=== PATIENT | female | born 1995 | race Caucasian/White ===

== ENCOUNTER 2022-12-26 06:53 | Inpatient (IN) | payer OTHER, SELFPAY ==
[2022-12-26] VITALS (27 sets, daily range): BP systolic 110–131; BP diastolic 60–74; PULSE 53–87; RESP 14–16; TEMP 36.6–36.9; O2SAT 97–100; BMI 29.5
[2022-12-26] MEDS: miSOPROStoL 25 MCG/0.25 TABLET VAGINAL ×3 (07:50→14:03)
[2022-12-26 08:23] LABS: SARS PCR* Negative SARS-CoV-2 (Negative)
--- NOTE | 2022-12-26 11:51 | P.OBHP_ITS ---
OB - H&P: HPI Labor/Induction History of Present Illness Time Seen by Provider: 07:05 Date Seen: 12/26/22 Chief Complaint: The patient is a 27 year old 1 para 0 at 41 weeks gestation by LMP c/w 1st trimester US, who presents for postdates induction. Chief complaint: IOL for post dates : 1 Para: 0 Date of last menstrual period: 03/14/22 Estimated date of delivery: 12/19/22 Gestational age based on last menstrual period: 41 Indications for induction: other (postdates) Narrative: Marsiela Chaparro is a 27 year old at 42 wks here for induction due to postdates. No concerns. Feels well. No regular ctxs, no bleeding. Good FM. No headaches or vision changes. History of Present Dating criteria: based on LMP (c/w 1st trimester US) care: good care Ultrasounds: normal 1st trimester US and abnormal US findings (20wk anatomy US with echogenic cardiac focus. Cristopher wnl. Level 2 US done and likely represents calcification papillary muscle. Heart normal otherwise and no further evaluation needed.) Medical complications: none Labs Blood type: O (+) positive Rubella: immune RPR/VDLR: nonreactive GBS status: negative HBsAG: negative Review of Systems Status of ROS: Reports: 6 or more systems reviewed and unremarkable except as noted in History and below Meds Home Medications and Allergies Home Medications Medication Instructions Recorded Confirmed Type escitalopram oxalate 10 mg tablet mg 12/26/22 History ferrous sulfate 325 mg (65 mg mg 12/26/22 History iron) tablet (FeroSul) OB - H&P: Exam Physical Exam: Vital signs: Temp Pulse BP 98 F 71 121/71 12/26/22 10:53 12/26/22 10:53 12/26/22 10:53 Constitutional: Constitutional: no acute distress and cooperative Routine HEENT Exam: Head: Present atraumatic, normal inspection and normocephalic Eye: Present normal appearance ENT: Present mucous membranes moist Routine Neck Exam: Neck: Present normal inspection Routine Respiratory Exam: Respiratory: Present CTA bilaterally Routine Cardiovascular Exam: Cardiovascular: RRR Detailed Labor and Delivery Exam: Comments: per nursing on admit /-3 Fetus (Single): Heart Rate Baseline: 130 Monitor Accelerations: Present Monitor Decelerations: None Senior Living Variability: Moderate (6-25) Routine Extremities Exam: Extremities: Absent pedal edema Routine Psychiatric Exam: Present normal affect, normal thought process and cooperative OB - Problem Based A/P Additional Plan (1) Post-dates : Status: Acute Plan discussed induction at length with pt in clinic and over phone last night. She did not have any further ?'s. Cytotec PV per protocol Delivery/Labor/Induction Plan Plan: induction Induction method: per misoprostol protocol
[2022-12-26] MEDS: LACTATED RINGERS 1000 ML 1,000 ML 425 ML IV (14:55)
[2022-12-26 15:03] LABS: Basophils Percent Auto 0.2 % (0.0-3.0); Eosinophils Percent Auto 0.4 % (0.0-7.0); Hemoglobin* 11.8 gm/dL (12.0-16.0); Immature Granulocytes Pct Auto 0.3 %; Lymphocytes Percent Auto 13.9 % (20-44); Mean Corpuscular HGB Conc 34 gm/dL (32-36); Mean Corpuscular Hemoglobin 32 pg (26-34); Mean Corpuscular Volume 95 fL (80-100); Monocytes Percent Auto 6.7 % (0.0-11.0); Neutrophils Percent Auto 78.5 % (42.0-72.0); Platelet Count* 159 K/uL (140-440); RDW Coefficient of Variation % 13.3 % (11.5-15.5); Red Blood Count 3.69 m/uL (4.00-5.20); White Blood Count* 11.25 K/uL (4.50-11.00)
[2022-12-26 15:08] LABS: Slide Review Reflex No
--- NOTE | 2022-12-26 17:04 | P.OBCN_ITS ---
OB - CN: HPI Date of Consult Time Seen by Provider: 15:00 Date Seen: 12/26/22 Patient: Maritza Patient Consult date: 12/26/22 Requesting Physician: Tameka Garcia DO Primary Care Provider: Tameka Garcia DO Consult Narrative Narrative: HPI: Marisela is a 27 year old G 1 P 0 at 41 and 0/7 weeks gestation that was admitted to the [facility] on 12/26/22 for postdates induction of labor. I was called by Dr. Tameka Garcia to see the patient due to suspected breech presentation of the fetus. Dr. Garcia stated that there was a deceleration in the heart rate, the patient felt a large movement and than the nurse had difficulty finding the heart rate on the external monitor. I performed a bedside ultrasound and noted the fetus to be in the fernando breech position with the head in the maternal left upper quadrant. She is not a good candidate for an external cephalic version due to postdates gestation and normal-low amniotic fluid level on gross ultrasound exam. I recommended a primary low-transverse section for delivery due to 1% risk of si gnificant morbidity or mortality with attempted vaginal breech delivery. Anesthesia for scheduled C-sections: Spinal. Anesthesia for most unscheduled C-sections: Epidural. Anesthesia for emergency : General endotracheal. Risks associated with include: Approximately 1% chance of hemorrhage during that would require transfusion of blood products, 2-5% chance of infection: She will receive IV Ancef prior to skin incision to prevent infection, chance of injury to organs that are adjacent to the uterus such as bladder, intestines, blood vessels, nerves, ureters 1/500. Chance of injury to the infant less than 1/72521. Typically women stay in the hospital 2- 3 nights after a . activity restrictions: No lifting greater than 25 lb for 6 weeks, nothing vaginally such as intercourse or tampons for 6 weeks, no high impact/strenuous/core exercises for 6 weeks. No driving well taking narcotic pain medication: Approximately 2 weeks. Walking and walking up and down stairs are safe and she can do is much walking as she feels up to doing at any time . The patient last ate at 12:30 p.m.: Philipa. Anesthesia recommends waiting for a until 8:30 p.m. unless there is an urgent or maternal reason for performing the sooner. The patient is now in p.o. and planning primary low-transverse section 8:30 p.m. today. Consent form was reviewed and signed. The patient's due date is 12/19/2022 by last menstrual period of 03/14/2022 which was consistent with a first trimester ultrasound. At her 20 week anatomic survey there was a single echogenic focus in the ventricle of the heart. Normal maternity 21 test. Level 2 ultrasound noted the echogenic focus and there were no other soft markers for aneuploidy so no additional recommendations were made. The patient's was otherwise uncomplicated. MEDICAL HISTORY: 1. Anxiety/depression 2. Anemia affecting SURGICAL HISTORY: 1. [place] teeth extraction OBSTETRIC/GYNECOLOGIC HISTORY: This is the patient's 1st . Cis-gender, heterosexual woman Sexually transmitted infections: No Pelvic inflammatory disease: No MRSA infection: No. History of abnormal Pap smears: Denies. I am not sure when the patient's last Pap smear was, followed by Dr. Tameka Garcia. SOCIAL HISTORY: Relationship status: . Spouse/Partner: Griffin Smoker: Tobacco: Lifetime nonsmoker E-cigarettes: No Alcohol consumption: No Illicit or Recreational drug use: No Concerns for safety at home/work: No Would like to discuss issues of abuse: No Dietary restrictions: No Exercise: Walking at least 3 days per week for 30 minutes during the . FAMILY HISTORY: Negative for recurrent defects, stillbirth, recurrent loss, mental disabilities, genetic or inherited disorders. ALLERGIES: NKDA GENERAL APPEARANCE: Pleasant, , well-groomed woman in no acute distress. VITAL SIGNS: as noted in nursing notes HEAD: Normocephalic, atraumatic. THYROID: no masses, nodularity, tenderness or enlargement. LUNGS: Clear to auscultation bilaterally without wheezes, rales or rhonchi. HEART: Regular rate and rhythm with normal S1 and S2. No gallop, rub or murmur. ABDOMEN: Gravid. Soft, nontender, nondistended, with normal bowels sounds throughout. EFM: Baseline: 130-140, accelerations: Present. Decelerations: Absent. Moderate variability. Reactive. Category 1 PRESENTATION: Fernando breech presentation with head in the maternal left upper quadrant. SVE: Deferred EXTREMITIES: No cyanosis, clubbing, or edema. No varicosities. NEUROLOGIC: Normal gait and balance. Normal deep tendon reflexes at bilateral patella 2+/2, equal without clonus. PSYCHIATRIC: alert and oriented x3. Normal speech pattern, eye contact and affect. SKIN: Warm, dry, and well perfused. Good turgor. No lesions, nodules or rashes. History History 1 Elective abortions Para 0 Spontaneous abortions Hx # Term Pregnancies Ectopic pregnancies Hx # Pregnancies Multiple births Number of Living Children 0 Labs Blood type: O (+) positive Rubella: immune RPR/VDLR: nonreactive GBS status: negative HBsAG: negative OB Labs: Lab Assessment Start: 12/26/22 07:05 Freq: ONCE Status: Active Protocol: PC.OBGBS Activity Type Activity Date Activity User E-sign Co-sign Detail Recorded Client Recorded Date Recorded By Document 12/26/22 08:17 [facility] [id number] 12/26/22 08:17 [facility] DAEMON 12/26/22 08:17 Lab Assessment GBS Negative [facility] Medical History (Updated 12/26/22 @ 17:15 by Rosa Mullen MD) Depression Surgical History (Updated 12/26/22 @ 17:15 by Rosa Mullen MD) Status post primary low transverse section [place] teeth removed (12/26/22) Social History Smoking Status: Never smoker Meds Home Medications and Allergies Home Medications Medication Instructions Recorded Confirmed Type escitalopram oxalate 10 mg tablet mg 12/26/22 History ferrous sulfate 325 mg (65 mg mg 12/26/22 History iron) tablet (FeroSul) Allergies Allergy/AdvReac Type Severity Reaction Status Date / Time No Known Allergies Allergy Verified 12/26/22 16:44 OB - H&P: Exam Physical Exam: Vital signs: Temp Pulse BP Pulse Ox 98.2 F 69 131/70 99 12/26/22 14:05 12/26/22 13:55 12/26/22 13:55 12/26/22 15:14 OB - Results Labs Labs: Short CBC 12/26/22 Range/Units 14:55 WBC 11.25 H (4.50-11.00) K/uL Hgb 11.8 L (12.0-16.0) gm/dL Hct 35.0 (33.0-51.0) % Plt Count 159 (140-440) K/uL OB - CN: A/P Assessment and Plan (1) Post-dates : Status: Acute (2) Breech presentation of fetus: Start date: 12/26/22 Status: Acute Assessment and Plan: 1. Recommended primary low-transverse . 2. Consent form reviewed and signed. 3. Planning to perform the at 8:30 p.m. today as the patient had pizza for lunch at 12:30 p.m. (3) Status post primary low transverse section: Problem details: Breech presentation, 41w0d. Status: Acute
--- NOTE | 2022-12-26 17:11 | P.OBPN_ITS ---
Subjective Time Seen by Provider: 14:50 Date Seen: 12/26/22 Narrative: called to room as FHT had significant decel at 1447 down to 65bpm for 2-2.5min and recovered to 180bpm and then dropped again to 90's and slowly recovered/stabilized. Position changes, IV placed and IVF started. Labs done. I did cervical check and 3.5cm/60%/-3. Palpated what felt buttocks on exam. US done bedside and head not vertex. I called Dr Tay Peterson, ob surgeon store sales consultant. She came and confirmed breech position and so c/s discussed. Version not rec due to there not being lot of fluid on US and 41wks. FHT's have remained reactive since decel. Objective Vital Signs: Last Vital Signs Temp 98.2 F 12/26/22 14:05 Pulse 69 12/26/22 13:55 BP 131/70 12/26/22 13:55 Pulse Ox 99 12/26/22 15:14 Pelvic Exam Dilation (cm): 3.5 Effacement (%): 60 Station: -3 Comments: palpates possible breech with cervical check Contractions Monitor mode: External Contraction pattern: Absent Assessment Assessment: other (induction will be stopped. No further cytotec. ) Heart Rate Baseline: 130 Meat Carver Variability: Moderate (6-25) Monitor Accelerations: Present Monitor Decelerations: Prolonged (deep sudden decel as above in narrative ) Plan Plan: US done bedside and head not vertex. I called Dr Tay Peterson, ob surgeon store sales consultant. She came and confirmed breech position and so c/s discussed. Version not rec due to there not being lot of fluid on US and 41wks. Discussed c/s with pt and s.o. Anesthesia plans on c/s at 8:30pm due to pts last eating. FHT's reactive and will monitor per protocol. all ?'s answered.
--- NOTE | 2022-12-26 17:15 | P.PCN_ITS ---
Procedure Note Time Seen by Provider: 21:30 Date Seen: 12/26/22 Date of procedure: 12/26/22 Will [facility] bill your pro fee for this procedure?: Yes Procedure: Preoperative diagnosis: Marisela is a 27-year-old 1 para 0 at 41 and 0/7 weeks * Admitted for postdates induction of labor * Fetus in breech presentation Postoperative diagnosis: Same Procedure: Primary low-transverse section Anesthesia: Spinal Surgeon: Rosa Mullen MD Medical Numerical Control Operator: Quantitative blood loss: mL IV Fluid: mL UOP: mL Specimen: none Drain(s): Nolacso to gravity Findings: A live male was delivered from the fernando breech position at 8:28Pm. Apgars were at 1 min and at 5 min, respectively. Infant weight: 8#3oz. Nuchal cord(s): yes/no. The placenta was delivered spontaneously and complete at 8:30 p.m.. Amniotic fluid: clear. Normal uterus, fallopian tubes and ovaries were noted. Dereje Desai Procedure: Marisela was taken to the OR where spinal anesthetic was found be adequate. A Nolasco catheter was placed. The patient was then placed in the dorsal supine position with a leftward tilt. She was then prepped and draped in a normal sterile manner. A Pfannenstiel skin incision was made and carried through sharply to the underlying layer of fascia. Fascia was incised in the midline and this incision carried laterally with Darling scissors. The superior aspect of fascial incision was tented up and proximally 5 cm of the rectus muscles were dissected off of the fascia sharply. The inferior aspect of the fascia was not dissected off of the rectus muscles. The rectus muscles were in the midline. The peritoneum was entered bluntly. This opening was extended bluntly. An Sumit-O self-retaining retractor was placed. A bladder flap was not created. Uterus was incised in a low transverse manner in the midline. This incision carried laterally with blunt pressure on the inferior and superior aspects of the uterine incision. The amniotic sac was ruptured. The breech, body and head were delivered atraumatically. The infant was shown to the patient and her support person and then handed to waiting pediatric and nursing staff. The placenta was delivered spontaneously. The uterus was cleared of clots and debris. The uterine incision was re-approximated with the uterus in vivo. The 1st layer using 0-Vicryl in a running, locked manner. The 2nd layer using 0- Monocryl in a running, vertical, imbricating layer. Additional sutures needed for hemostasis: Yes: 2 figure of 8 sutures using 2-0 chromic. Donna was applied to the uterine incision. Excellent hemostasis was verified. The Sumit retractor was removed. The peritoneum was reapproximated using 3-0 Vicryl in a running manner.. The rectus muscles were not reapproximated. The rectus muscles were then closely inspected to verify hemostasis. Hemostasis was obtained with bipolar cautery. The fascia was then re-approximated using 0-Maxon loop in a running manner. The subcutaneous tissue was then irrigated with saline and hemostasis obtained with bipolar cautery. The subcutaneous tissue was re-approximated with 3-0 plain gut interrupted sutures in 2 layers. The skin was reapproximated using 4-0 Monocryl in a running subcuticular manner. Exofin skin adhesive and a Methaplex dressing were applied. The patient tolerated this procedure well. Sponge, lap and instrument counts were correct x2 active to the procedure. Patient was taken to the recovery area in stable condition. The patient received 2 g of IV Ancef prior to skin incision. After delivery of the placenta the patient received 1 g IV TXA. Surgeon: Rosa Mullen MD
[2022-12-26] MEDS: CEFAZOLIN 2 GM INJ IVP (20:05)
--- NOTE | 2022-12-26 20:41 | SUR.OPER ---
DR AB WHEELER DOES NOT WANT PLACENTA SENT.
--- NOTE | 2022-12-26 21:44 | PC.NURSE ---
IV patent and infusing at 2345.
--- NOTE | 2022-12-26 21:46 | W.ANESCHARGE ---
Anesthesia Charges Start Date/Time Anesthesia Start Date: 12/26/22 Anesthesia Start Time: 19:59 Stop Date/Time Anesthesia Stop Date: 12/26/22 Anesthesia Stop Time: 21:37 Summary Emergency: Yes
--- NOTE | 2022-12-26 21:47 | W.PM.NB ---
Nerve Block Nerve Block Time Seen by Provider: 21:25 Date Seen: 12/26/22 Type of block requested by surgeon for post-operative analgesia: TAP Side: bilateral Time out performed: Yes Verification of patient name: Yes Verification of date of : Yes Site marking: not applicable Name of person performing procedure: Jovan Ortiz Continuous monitoring Was continuous monitoring of O2 sat, B/P, environmental monitoring technician, recorded every 15 minutes?: Yes Procedure Checklist: sterile prep, needles and gloves Ultrasound guided. Images saved: Yes Medications given in 5ml increments after negative aspiration: Marcaine %: 0.25 mL: 15 Needle gauge: 20 and Exparel mL: 5 Needle gauge: 20 Patient tolerated procedure well: Yes Block Charges Block Charge (with Pro Fee): TAP Bilateral Use of Ultrasound Machine for Block: Yes- US Guidance/pain block
--- NOTE | 2022-12-26 21:49 | PC.NURSE ---
[facility] RN completed fundal check on 77
[2022-12-27] VITALS (10 sets, daily range): BP systolic 116–122; BP diastolic 70–80; PULSE 65–80; RESP 14–16; TEMP 36.7–37.3; O2SAT 96–100
[2022-12-27] MEDS: ACETAMINOPHEN 500 MG TABLET 1000 MG PO ×3 (01:36→15:33)
[2022-12-27] MEDS: LACTATED RINGERS 1000 ML 1,000 ML 125 ML IV (01:36)
[2022-12-27] MEDS: KETOROLAC 30 MG/ML inj IVP ×4 (03:11→21:53)
[2022-12-27 07:54] LABS: Hemoglobin* 10.6 gm/dL (12.0-16.0)
[2022-12-27] MEDS: DOCUSATE SODIUM 100 MG CAPSULE PO (08:28)
--- NOTE | 2022-12-27 09:30 | PM.OBPNCS1 ---
OB - PN: A/P Assessment and Plan (1) Post-dates : Status: Acute (2) Breech presentation of fetus: Status: Acute (3) Status post primary low transverse section: Problem details: Breech presentation, 41w0d. Status: Acute Plan , post-op C/S day 1 plan to have catheter and dressing removed today, pt to get up and ambulate Lactating mother. may see lacation if desires Plan day: 1 Plan: routine postop care OB - PN: Subj Subjective Date Seen: 12/27/22 Narrative: The patient feels well.? The pain is well controlled with current medications.? She has no new complaints.? Concern for dehydration last night due to low output, catheter remained in place overnight and given IV fluids. Urinary output is adequate.? Has a good appetite, is tolerating a general diet, is passing flatus, and has not yet had a bowel movement.? Has scant amount of rubra lochia.? She is has not yet ambulated. She is and reports it is going well.? OB - PN: Obj Exam Physical Exam: Vital signs: Temp Pulse Resp BP Pulse Ox O2 Del Method 98.4 F 75 16 120/72 98 12/27/22 08:08 12/27/22 08:08 12/27/22 08:08 12/27/22 08:08 12/27/22 08:08 12/27/22 08:08 Narrative: GENERAL APPEARANCE:? normal affect, alert, no distress? MOOD:? appropriate? CHEST:? clear to auscultation? HEART:? regular rate and rhythm? ABDOMEN:? soft, non-tender the uterine fundus is At Umbilicus, Midline and is appropriate for the stage of recovery.? LOCHIA: scant amount EXTREMITIES:? normal and no edema? Urinary Catheter Management: Urethral: Cath placed during this visit: yes Urethral indwelling: Yes Reason for continuing: prolonged immobilization Insertion date: 12/26/22 Insertion time: 20:10 OB - PN: Obj Data Labs Labs: Laboratory Results - last 24 hr 12/26/22 12/26/22 12/27/22 14:55 14:55 07:30 WBC 11.25 H RBC 3.69 L Hgb 11.8 L 10.6 L Hct 35.0 MCV 95 MCH 32 MCHC 34 RDW Coeff of Karen 13.3 Plt Count 159 Neut % (Auto) 78.5 H Lymph % (Auto) 13.9 L [place] % (Auto) 6.7 Eos % (Auto) 0.4 Baso % (Auto) 0.2 Neut # (Auto) 8.80 H Lymph # (Auto) 1.60 [place] # (Auto) 0.80 Eos # (Auto) 0.00 Baso # (Auto) 0.00 Blood Type O Positive Antibody Screen NEGATIVE
[2022-12-27] MEDS: SODIUM CHLORIDE 0.9 % (FLUSH) 10 ML SYRINGE IVF ×2 (09:32→21:54)
[2022-12-27] MEDS: ESCITALOPRAM 10 MG TABLET PO (20:44)
[2022-12-28] MEDS: ACETAMINOPHEN 500 MG TABLET 1000 MG PO ×3 (01:12→12:53)
[2022-12-28 01:19] VITALS: BP 121/77; PULSE 76; RESP 16; TEMP 36.8; O2SAT 98
[2022-12-28] MEDS: KETOROLAC 30 MG/ML inj IVP (04:14)
[2022-12-28 08:00] VITALS: BP 110/71; PULSE 85; RESP 16; TEMP 36.7; O2SAT 99
[2022-12-28] MEDS: DOCUSATE SODIUM 100 MG CAPSULE PO (08:22)
--- NOTE | 2022-12-28 09:16 | P.DS_ITS ---
DS: Providers Provider Date Seen: 12/28/22 Date of admission: 12/26/22 06:53 Primary care physician: Taemka Garcia DO Admitting Clinician: Tameka Garcia DO Consults: Rosa Mullen MD Attending Physician on discharge: Tameka Garcia DO Date of Discharge: 12/28/22 DS: Diagnosis Discharge Diagnosis (1) Status post primary low transverse section: Status: Acute Problem details: Breech presentation, 41w0d. (2) Anemia due to acute blood loss: Status: Acute Exam Narrative: Exam Narrative: General: Pleasant, no acute distress Heart: Regular rate and rhythm, no murmur or gallop Lungs: Clear to auscultation bilaterally Abdomen: Soft, nontender, fundus well below umbilicus, normoactive bowel sounds in all 4 quadrants, incision clean, dry, and intact Lower extremities: No edema or erythema Const: Vital Signs, click to edit/add: Vital Signs - 24 hr 12/27/22 13:18 12/27/22 15:38 12/27/22 20:45 Temperature 98.1 F 99.1 F 98.1 F Pulse Rate [Left P ulse Oximeter] 69 69 80 Respiratory Rate 16 16 16 Blood Pressure [Le ft Arm] 116/70 121/80 118/75 Pulse Oximetry 96 96 97 Oxygen Delivery Me thod Room Air Room Air Room Air 12/28/22 01:19 12/28/22 08:00 Temperature 98.2 F 98.1 F Pulse Rate [Left P ulse Oximeter] 76 85 Respiratory Rate 16 16 Blood Pressure [Le ft Arm] 121/77 110/71 Pulse Oximetry 98 99 Oxygen Delivery Me thod Room Air Room Air OB - DS: Summary Hospital Course Hospital Course: Marisela is a 27 yo G1 now [id number] woman who is s/p primary for breech presentation on 12/26/22 at 41 weeks' gestation. OB Problem List: 1. [facility] for care 2. Anxiety/depression 3. Anemia complicating She was in the process of induction of labor when breech presentation was discovered. She went on to have an uncomplicated primary delivery. She delivered a viable [male/female] infant in breech presentation. Her hemoglobin on postoperative day 1 was 10.6. Today, on day 2, she is doing well. She is breast feeding though she is occasionally struggling with latch. She is ambulating and urinating without difficulty. She is tolerating regular diet. She has not yet had a bowel movement. Peripartum Data Procedures: Procedures Operation Date: 12/26/22 20:45 Actual Procedure Side Surgeon javier GABRIELA LOW TRANSVERSE Section Rosa Mullen MD Infant Gender: Male Time Spent with Patient Time attestation: Total time spent providing and/or coordinating discharge services: Discharge Plan Discharge Disposition: Home, Self-Care Date of Admission: 12/26/22 06:53 Attending Provider on Discharge: Kaley Howard Consulting Providers: Rosa Mullen Primary Care Provider: Tameka Garcia Condition: Stable Anticipated Discharge Date/Time: 12/29/22 15:00 Discharge Medications: New docusate sodium 100 mg Capsule 100 mg PO BID PRN (Reason: constipation) Qty: 100 0RF ibuprofen 600 mg Tablet 600 mg PO Q6H PRN (Reason: Pain) Qty: 30 0RF oxycodone 5 mg Tablet 5 mg PO Q4H PRN (Reason: Pain) Qty: 21 0RF acetaminophen 500 mg Tablet 1,000 mg PO Q6H PRN (Reason: Pain) Qty: 0 0RF ferrous sulfate 325 mg (65 mg iron) Tablet 325 mg PO DAILYWM Qty: 0 0RF Continued ferrous sulfate [FeroSul] 325 mg (65 mg iron) tablet Label Comments: TAKE 1 TABLET (325 MG) BY MOUTH ONCE DAILY WITH A MEAL. escitalopram oxalate 10 mg tablet Label Comments: TAKE 1 TABLET (10 MG) BY MOUTH ONCE DAILY. Discharge Orders: Discharge Order (Routine); Ordered 12/28/22 Ordered By: Kaley Howard Patient Education: (DC) Additional Instructions: Discharge instructions were reviewed with the patient including signs and symptoms of infection and home going medications ACTIVITY RESTRICTIONS: Lifting Restrictions: 20 pounds for 6 weeks No not submerge incision under water X 2 weeks? Nothing vaginally for 6 weeks: no tampons or intercourse Do not drive while taking narcotic pain medication(s): 1-2 weeks. No strenuous, core or high impact exercise: 6 weeks NO RESTRICTION: showering, walking or walking up/down stairs. Off Work or School for a minimum 8 weeks after delivery. Symptoms to report to doctor: * Bleeding that saturates more than one pad per hour * Passing clots larger than the size of a golf ball * Pain not relieved by prescribed medication * Fever above 100.4 degrees Fahrenheit * A foul vaginal odor * Difficulty in emotions, mood, and functions * Thoughts of hurting yourself and/or * Painful, reddened area in your breast * Any drainage, redness, or tenderness in your IV/epidural site * Severe headache that doesn't improve after taking medications * Changes in vision, including temporary loss of vision, blurred vision, and/or light sensitivity * Upper abdominal pain (usually under ribs on the right side) * Decrease in urination or painful, frequent urinating * Chest pain * Shortness of breath * Tenderness or pain with redness and/swelling in the calf(s) of your leg FOLLOW-UP APPOINTMENTS: 1. With Dr. Rosa Mullen 1-2 weeks for an incision check. ([facility] [place]) 2. With Dr. Garcia for your 6 week visit = annual/physical exam consultation services are available to all mothers and babies for the first year after delivery.? To make an appointment, please call [phone]. Discharge Diet: Regular Follow Up Appointments: Rosa Mullen MD [Staff Physician] - Tameka Garcia DO [Primary Care Provider] - Forms: [employer] Info Instructions
[2022-12-28] MEDS: IBUPROFEN 600 MG TABLET PO (11:21)
== END 2022-12-28 12:45 | disposition home or self-care (01) | DRG 787 ==
PROVIDERS: Obstetrics & Gynecology; Admitting Provider Family Medicine; PCP Family Medicine; Visit Provider Family Medicine
PROC: (CPT 59514; principal; 2022-12-26 20:30)
DX: O48.0 Post-term pregnancy (principal); D62 Acute posthemorrhagic anemia; O64.1XX0 Obstructed labor due to breech presentation, not applicable or unspecified; Z3A.41 41 weeks gestation of pregnancy; Z37.0 Single live birth
CPT/HCPCS: 01961; 36415; 59200; 64488; 76815; 76942; 85018; 85025; 86850; 86900; 86901; 87635; 99140; A9270; C9290; J0690; J1885; J2274; J2405; J2590; J3490; J7120

== ENCOUNTER 2023-03-13 11:19 | Day surgery (SDC) | payer OTHER, SELFPAY ==
[2023-03-13] VITALS (13 sets, daily range): BP systolic 103–127; BP diastolic 51–69; PULSE 62–106; RESP 14–18; TEMP 36.4–36.7; O2SAT 97–100; BMI 26.6
--- NOTE | 2023-03-13 11:39 | CRLHL7_ITS ---
For Patients: As a result of the Century Cures Act, medical imaging exams and procedure reports are released immediately into your electronic medical record. You may view this report before your referring provider. If you have questions, please contact your health care provider. INDICATION: Lower abdominal pain. TECHNIQUE: CT abdomen and pelvis acquired with 89 cc Omnipaque 370 IV contrast. COMPARISON: None. FINDINGS: Lower chest: Unremarkable. Liver: Unremarkable. Normal in size and attenuation. No suspicious masses. Gallbladder and bile ducts: Unremarkable. No stones or inflammation. No biliary dilatation. Pancreas: Unremarkable. No mass or inflammation. Spleen: Unremarkable. Normal in size. No masses. Adrenal glands: Unremarkable. No nodules. Kidneys: Unremarkable. No suspicious masses, stones, or hydronephrosis. GI tract: Stomach and small bowel normal. Moderate appendicolith at the base of the appendix. Although there is air and portions of the appendix distal to the appendicolith, other portions are fluid filled and distended with mild periappendiceal fat stranding. The appendix measures up to 12 millimeters in diameter (sagittal series 5, images 88-103, coronal images 48-77 and axial images 115-102. There is no evidence of perforation. No periappendiceal fluid collection is present. There is no free intraperitoneal air. Moderate stool noted in the distal sigmoid colon and rectum. Vasculature: Abdominal aorta is normal in caliber. Mesenteric arteries are patent. Lymph nodes: No lymphadenopathy. Peritoneum/Abdominal Wall: Unremarkable. No sign of mass or infiltration. No free air or significant free fluid. Pelvis: Unremarkable. Bones: Unremarkable for age. IMPRESSION: Findings consistent with early acute appendicitis. Although there is a small amount of residual gas within the lumen of the appendix, there is an appendicolith at the base of the appendix and much of the appendix is fluid-filled and dilated and there is mild periappendiceal fat stranding. No findings of perforation are detected. There is no periappendiceal fluid collection. Please note that all CT scans at this facility use dose modulation, iterative reconstruction, and/or weight-based dosing when appropriate to reduce radiation dose to as low as reasonably achievable. Dictated by Boris Houser MD @ 03/13/2023 12:58:55 PM (Electronically Signed)
--- NOTE | 2023-03-13 11:40 | ED.ABDPAIN ---
HPI - Abdominal Pain General Chief Complaint: Abdominal Pain Stated Complaint: Abdominal pain Time Seen by Provider: 03/13/23 11:23 History of Present Illness HPI narrative: This 27-year-old female comes in reporting lower abdominal pain that began this morning. She states that it is a constant pain and has been worsening over these past 4 5 hours. She has not had any food today and is not interested in taking food. She did have some nausea and attempted to vomit thinking that might help her feel better. There is no report of fever, diarrhea, or dysuria. She did have a 10 days ago for her 1st child and recovered nicely without any complication. She is not and has resumed control and denies any possibility of . Related Data Home Medications Medication Instructions Recorded Confirmed escitalopram oxalate 10 mg tablet 10 mg PO DAILY 12/26/22 03/13/23 norgestrel 0.3 mg-ethinyl 1 tab PO DAILY 03/13/23 03/13/23 estradiol 30 mcg tablet (Romy (28)) Allergies Allergy/AdvReac Type Severity Reaction Status Date / Time No Known Allergies Allergy Verified 03/13/23 11:26 Review of Systems Status of ROS Reports: 10 or more systems reviewed and unremarkable except as noted in History and below Narrative Constitutional: No fevers, no weight gain or loss. Eyes: No discharge. No vision changes. HENT: No congestion, no sore throat, no ear pain. Cardiovascular: No chest pain, no palpitations. Respiratory: No shortness of breath, no wheezes, no cough. Gastrointestinal: Abdominal pain as described above. No diarrhea. Genitourinary: No dysuria, no hematuria. Musculoskeletal: Normal range of motion. Skin: No rashes, no pruritis. Neurological: No dizziness, weakness, sensory change, speech change. Endo/Heme/Allergies: No bruising or bleeding. No polydipsia. Pysch: no suicidality, no anxiety, no insomnia. All other systems reviewed and are negative. [facility] Medical History Depression Post-dates Surgical History Status post primary low transverse section [place] teeth removed (12/26/22) Social History Smoking Status: Never smoker How often do you have a drink containing alcohol: 2-3 times a week AUDIT-C Alcohol total score: 3 Non-prescribed substance use: denies use Little interest or pleasure in doing things: not at all Feeling down, depressed, or hopeless: not at all Exam Narrative: Exam Narrative: Constitutional: Well-developed, well-nourished, no acute distress. HEENT: Normocephalic, atraumatic. Neck: Normal range of motion. Nontender. Supple. Heart: Regular. No murmurs. Normal rate. Intact distal pulses. Lungs: Clear to auscultation. No chest discomfort. No wheezes, rhonchi, or rales. Abdomen: Normal bowel sounds. Tenderness in the lower abdomen and specifically at McBurney's point. Rebound tenderness is present. Rovsing's sign is negative. Genitalia: Deferred. Back: No midline tenderness. Normal range of motion. Extremities: Normal range of motion. No injury. Skin: Intact. No rash. Warm. No erythema or pallor. Neurologic: No altered sensation. No weakness. Alert and oriented. Psychiatric: No suicidality. No anxiety or depression. No insomnia. Nursing notes and vitals signs are reviewed. Const: Vital Signs, click to edit/add: Vital Signs - 24 hr 03/13/23 11:29 03/13/23 12:16 03/13/23 13:09 Temperature 97.6 F Pulse Rate [Pulse Oximeter] 64 64 66 Respiratory Rate 18 18 18 Blood Pressure [Le ft Upper Arm] 115/67 115/69 Pulse Oximetry 97 100 100 Oxygen Delivery Me thod Room Air Room Air Room Air Course Vital Signs Vital signs: Initial Vital Signs Temperature 97.6 F 03/13/23 11:29 Temperature Source Temporal Artery Scan 03/13/23 11:29 Pulse Rate 64 03/13/23 11:29 Pulse Rhythm Regular 03/13/23 11:29 Respiratory Rate 18 03/13/23 11:29 Blood Pressure 115/67 03/13/23 11:29 Blood Pressure Mean 83 03/13/23 11:29 Blood Pressure Position Sitting 03/13/23 11:29 Pulse Oximetry 97 03/13/23 11:29 Oxygen Delivery Method Room Air 03/13/23 11:29 Vital Signs Temperature 97.6 F 03/13/23 11:29 Pulse Rate 64 03/13/23 11:29 Respiratory Rate 18 03/13/23 11:29 Blood Pressure 115/67 03/13/23 11:29 Pulse Oximetry 97 03/13/23 11:29 Oxygen Delivery Method Room Air 03/13/23 11:29 Temperature 97.6 F 03/13/23 11:29 Pulse Rate 66 03/13/23 13:09 Respiratory Rate 18 03/13/23 13:09 Blood Pressure 115/69 03/13/23 13:09 Pulse Oximetry 100 03/13/23 13:09 Oxygen Delivery Method Room Air 03/13/23 13:09 MDM - Abdominal Pain MDM Narrative Medical decision making narrative: This patient comes in with abdominal pain as described above. An IV was established where she did received Dilaudid 0.5 mg and Zofran 4 mg. This brought some relief to her symptoms. CT scan of the abdomen and pelvis is ordered along with labs. Lab results do returned with an elevated white count at around 14,000. CT imaging does show evidence of early appendicitis which is otherwise uncomplicated. The patient did receive another dose of Dilaudid 0.5 mg intravenously. I did speak with the surgeon on-call, Dr. Stanley, who will arrange for appendectomy. Lab Data Labs: Lab Results 03/13/23 Range/Units 11:45 WBC 14.87 H (4.50-11.00) K/uL RBC 4.27 (4.00-5.20) m/uL Hgb 12.8 (12.0-16.0) gm/dL Hct 38.9 (33.0-51.0) % MCV 91 (80-100) fL MCH 30 (26-34) pg MCHC 33 (32-36) gm/dL RDW Coeff of Karen 12.7 (11.5-15.5) % Plt Count 246 (140-440) K/uL Neut % (Auto) 88.1 H (42.0-72.0) % Lymph % (Auto) 6.3 L (20-44) % [place] % (Auto) 5.3 (0.0-11.0) % Eos % (Auto) 0.1 (0.0-7.0) % Baso % (Auto) 0.1 (0.0-3.0) % Neut # (Auto) 13.10 H (1.7-7.0) K/uL Lymph # (Auto) 0.90 (0.90-2.90) K/uL [place] # (Auto) 0.80 (0.00-0.90) K/UL Eos # (Auto) 0.00 (0.00-0.50) K/uL Baso # (Auto) 0.00 (0.00-0.30) K/uL Sodium 138 (135-149) mmol/L Potassium 4.0 (3.6-5.1) mmol/L Chloride 106 (96-114) mmol/L Carbon Dioxide 25 (20-32) mmol/L BUN 20 (5-24) mg/dL Creatinine 0.8 (0.5-1.5) mg/dL Estimated Creat Clear 110.39 Estimated GFR 104 ml/min Glucose 98 (60-115) mg/dL Calcium 9.2 (8.4-10.6) mg/dL Imaging Data CT scan - abdomen: Radiologist's impression: Findings consistent with early acute appendicitis. Although there is a small amount of residual gas within the lumen of the appendix, there is an appendicolith at the base of the appendix and much of the appendix is fluid-filled and dilated and there is mild periappendiceal fat stranding. No findings of perforation are detected. There is no periappendiceal fluid collection. Discharge Plan Discharge Clinical Impression: Acute appendicitis Patient Disposition: XFER to OR Condition: Unchanged Follow Up/Referrals: Tameka Garcia DO [Primary Care Provider] -
[2023-03-13] MEDS: HYDROmorphone 0.5 mg/0.5 ml inj IVP ×2 (11:51→13:07)
[2023-03-13] MEDS: ONDANSETRON 2 MG/ML inj 4 MG IVP (11:52)
[2023-03-13 11:54] LABS: Basophils Percent Auto 0.1 % (0.0-3.0); Eosinophils Percent Auto 0.1 % (0.0-7.0); Hematocrit 38.9 % (33.0-51.0); Hemoglobin* 12.8 gm/dL (12.0-16.0); Immature Granulocytes Pct Auto 0.1 %; Lymphocytes Percent Auto 6.3 % (20-44); Mean Corpuscular HGB Conc 33 gm/dL (32-36); Mean Corpuscular Hemoglobin 30 pg (26-34); Mean Corpuscular Volume 91 fL (80-100); Monocytes Percent Auto 5.3 % (0.0-11.0); Neutrophils Percent Auto 88.1 % (42.0-72.0); Platelet Count* 246 K/uL (140-440); RDW Coefficient of Variation % 12.7 % (11.5-15.5); Red Blood Count 4.27 m/uL (4.00-5.20); White Blood Count* 14.87 K/uL (4.50-11.00)
[2023-03-13 11:56] LABS: Slide Review Reflex No
[2023-03-13 12:07] LABS: Chloride* 106 mmol/L (96-114); Sodium* 138 mmol/L (135-149)
[2023-03-13 12:09] LABS: Creatinine* 0.8 mg/dL (0.5-1.5); Est. Creatinine Clearance* 110.39; Estimated Glomerular Filt Rate 104 ml/min
[2023-03-13 12:10] LABS: Blood Urea Nitrogen* 20 mg/dL (5-24); Calcium* 9.2 mg/dL (8.4-10.6); Carbon Dioxide* 25 mmol/L (20-32); Glucose* 98 mg/dL (60-115)
--- NOTE | 2023-03-13 13:16 | ED.NURSE ---
CATHODE WASHER swab for covid at 1310. pt states only po today was a sip of water 0930 am
[2023-03-13 13:49] LABS: SARS PCR* Negative SARS-CoV-2 (Negative)
--- NOTE | 2023-03-13 13:49 | P.GSHP_ITS ---
History of Present Illness History of Present Illness Date Seen: 03/13/23 Chief complaint: Abdominal pain Narrative: Marisela Chaparro is a 27 year old female 10 weeks s/p (patient is not ) presented to emergency room with lower abdominal pain that started today in the morning. Patient states that the pain was described as crampy and now since she has been in the emergency room and migrated to the right lower quadrant. Patient complained of nausea. She was passing gas. Her last bowel movement was today in the morning. She denies any fevers. She did not have anything similar to this in the past. In the emergency room she was found to have an elevated WBC of 14.8. An abdominal CT was obtained that showed a dilated fluid-filled appendix with an appendicolith. There was air in the distal appendix with mild brando appendiceal inflammation. There was no dilation of the large or small intestine. Review of Systems Narrative: General: no fevers HENT: no problems swallowing CV: no shortness of breath Resp: no cough GI: See above Skin: no new rashes Musculoskeletal: no back pain Neuro: no muscle weakness Psyche: + anxiety PFSH PFSH Medical History Depression Post-dates Surgical History Status post primary low transverse section [place] teeth removed (12/26/22) Social History Smoking Status: Never smoker How often do you have a drink containing alcohol: 2-3 times a week AUDIT-C Alcohol total score: 3 Non-prescribed substance use: denies use Little interest or pleasure in doing things: not at all Feeling down, depressed, or hopeless: not at all Meds Home Medications and Allergies Home Medications Medication Instructions Recorded Confirmed Type escitalopram oxalate 10 mg tablet 10 mg PO DAILY 12/26/22 03/13/23 History norgestrel 0.3 mg-ethinyl 1 tab PO DAILY 03/13/23 03/13/23 History estradiol 30 mcg tablet (Romy (28)) Allergies Allergy/AdvReac Type Severity Reaction Status Date / Time No Known Allergies Allergy Verified 03/13/23 11:26 Exam Narrative: Exam Narrative: General appearance: Alert, cooperative, and in no distress Pulmonary: Chest symmetric, lungs clear bilaterally Cardiovascular Heart: Regular rate and rhythm, S1, S2, no murmurs/rubs/gallops Gastrointestinal Abdominal: soft, not distended, tender to palpation in bilateral lower quadrants, right more than left, with rebound tenderness in the right lower quadrant. incision is healing well. Skin: Normal skin color, texture, and turgor. No rashes or lesions. Psychiatric: Alert, cooperative, normal affect. Const: Vital Signs, click to edit/add: Vital Signs - 24 hr 03/13/23 11:29 03/13/23 12:16 03/13/23 13:09 Temperature 97.6 F Pulse Rate [Pulse Oximeter] 64 64 66 Respiratory Rate 18 18 18 Blood Pressure [Le ft Upper Arm] 115/67 115/69 Pulse Oximetry 97 100 100 Oxygen Delivery Me thod Room Air Room Air Room Air Assessment and Plan Assessment and plan (1) Acute appendicitis: Status: Acute Plan 27-year-old female presents with acute appendicitis. I discussed with the patient and her her laboratory and imaging findings. Patient has a dilated fluid-filled appendix with some air in the distal appendix. There is presence appendix and mild periappendiceal inflammation the tip of the appendix. Given patient's clinical symptoms, her physical exam, and her laboratory and imaging findings, acute appendicitis is suspected. I recommended to proceed with laparoscopic appendectomy. The procedure was discussed in detail. The risks associated procedure including infection, bleeding, injury to intra-abdominal organs, and conversion to open were all discussed with the patient, and she agreed to proceed. Patient did not have intercourse since her delivery so the test is not necessary. She is not breast feeding.
[2023-03-13] MEDS: CEFAZOLIN 2 GM INJ IVP (14:00)
[2023-03-13] MEDS: LACTATED RINGERS 1000 ML 1,000 ML 100 ML IV (14:15)
[2023-03-13] MEDS: BUPIVACAINE 0.25% 30 ML 10 ML INJECTION (14:20)
--- NOTE | 2023-03-13 14:46 | W.ANESCHARGE ---
Anesthesia Charges Start Date/Time Anesthesia Start Date: 03/13/23 Anesthesia Start Time: 14:00 Stop Date/Time Anesthesia Stop Date: 03/13/23 Anesthesia Stop Time: 15:03 Summary Emergency: MDA
--- NOTE | 2023-03-13 15:01 | P.GSOP_ITS ---
Operative Note Date of procedure: 03/13/23 Pre-op diagnosis: 1. Acute appendicitis. 2. S/p 10 weeks ago. Post-op diagnosis: Same Type of Procedure: 1. Laparoscopic appendectomy. Indications: 27-year-old female presented to emergency room with lower abdominal pain that started today in the morning. The pain was crampy and migrated to the right lower quadrant. She had nausea associated with the pain. In the emergency room she was found to have an elevated WBC of 14. An abdominal CT was obtained that showed a dilated fluid-filled appendix with mild periappendiceal inflammation. There was evidence of an appendicolith as well. Patient is 10 weeks s/p C- section. On clinical exam she had tenderness to palpation in bilateral lower quadrants, right more than left, with rebound tenderness in the right side. Patient's incision was healing well. Given patient's clinical information and her physical exam, acute appendicitis was suspected and laparoscopic appendectomy was recommended. The procedure was discussed in detail. The risks associated procedure including infection, bleeding, injury to intra-abdominal organs, and conversion to open were all discussed with the patient, and she agreed to proceed. Procedure Description: After discussing the risks and benefits of the procedure, the patient signed informed consent.? The operative site was marked and the patient was brought to the operating room and placed on the operating table in supine position.? Care was taken to pad the patient's pressure points.?? The patient was then intubated by anesthesia.?? The operative site was then prepped and draped in the usual sterile fashion.? A time-out was then performed. A 5-mm laparoscopy port was placed in the left upper quadrant guided by a 5-mm laparoscope placed into a translucent trochar. Passage through the layers of the abdominal wall was visualized with the laparoscope. A pneumoperitoneum was established. A 30-degree 5-mm laparoscope was advanced into the abdomen. The abdomen was briefly surveyed, and adhesions were noted in the ascending colon and near the liver. The incision was healing well with no intra- abdominal organs adherent to the peritoneum of the incision. A 12-mm port and a 5-mm port were placed in the left low quadrant and suprapubically, respectively, under direct visualization by laparoscope. Left upper quadrant entrance port was then examined intraabdominally by placing the camera through the left lower quadrant port and no intraabdominal injury was seen. The patient was placed in Trendelenburg position, allowing the abdominal contents to shift cephalad. The small bowel was moved toward the midline in the abdomen and this allowed for identification of the appendix. It appeared to be inflamed and dilated. The appendix was grasped and dissected from the peritoneum using Harmonic scalpel. The appendiceal mesentery was divided near the appendix with Harmonic scalpel. The appendiceal base was skeletonized with Harmonic scalpel. A vascular load Endo-YULIET stapler was advanced through the 12-mm port into the abdomen and appendix was stapled off at its base. The appendix was then placed in an endoscopic retrieval bag and extracted from the abdomen through the 12-mm port. The abdomen was surveyed for hemostasis. The appendiceal base staple line appeared to be intact. There was no bleeding seen from appendiceal mesentery. Pulsation of the appendiceal mesentery was seen and I elected to place 5 mm clips in the cut edge of the appendiceal mesentery to avoid bleeding. The 12-mm port was withdrawn and the fascial defect was closed with 0-0 Vicryl stitch using Michael David needle under direct visualization. The 5-mm port was removed under direct visualization. The left upper quadrant port was used to evacuate the pneumoperitoneum and then withdrawn. The skin incisions were closed with 4-0 monocryl. Steri-Strips were applied over the incisions. All counts were correct at the end of the case. The patient tolerated this procedure well and was transferred to PACU in stable condition. Findings: Dilated inflamed appendix. Anesthesia: GETA Surgeon: Napoleon Stanley MD Specimen: Appendix Condition: stable Disposition: PACU
--- NOTE | 2023-03-13 15:02 | P.ANES_ITS ---
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
[2023-03-13] MEDS: MEPERIDINE 25 MG/ML INJ 12.5 MG IVP (15:06)
[2023-03-13] MEDS: HYDROCODONE-ACETAMIN 5-325 MG 1 TAB PO (16:07)
== END 2023-03-13 17:04 | disposition home or self-care (01) ==
LOC: ED 13:17 → SS 13:59
PROVIDERS: Surgery; Emergency Provider Emergency Medicine Emergency Medical Services; PCP Family Medicine; Visit Provider Pediatrics Pediatric Pulmonology
PROC: 0DTJ4ZZ Resection of Appendix, Percutaneous Endoscopic Approach (ICD-10-PCS; CPT 44970; principal; 2023-03-13 13:30)
DX: K35.80 Unspecified acute appendicitis (principal)
CPT/HCPCS: 44970; 00840; 36415; 74177; 80048; 85025; 87635; 99140; 99285; A9270; J0330; J0690; J1100; J1170; J2175; J2250; J2405; J2704; J2710; J3010; J3490; J7120; Q9967

== ENCOUNTER 2025-06-06 05:47 | Inpatient (IN) | payer BC, SELFPAY ==
[2025-06-06] VITALS (32 sets, daily range): BP systolic 103–135; BP diastolic 55–71; PULSE 58–83; RESP 16–18; TEMP 36.6–36.9; O2SAT 97–100; BMI 30.4
[2025-06-06] MEDS: LACTATED RINGERS 1000 ML 1,000 ML IV (06:52)
--- NOTE | 2025-06-06 07:02 | W.PM.LDBA ---
Subjective History of Present Illness Time Seen by Provider: 07:03 Date Seen: 06/06/25 Narrative: Patient is being admitted to Labor and Delivery for scheduled repeat delivery. She is a 29 year old at 39.3 weeks gestation. She is a patient of Dr. Garcia but her full history and physical was dictated by myself on 05/19/25. Please see this for details. Active movement. Denies Ctx, LOF, vaginal bleeding or abnormal vaginal discharge. OB - Problem Based A/P Additional Plan (1) Previous delivery affecting : Status: Acute (2) : Status: Acute (3) Breech presentation of fetus: Status: Resolved Plan - Consent reviewed with patient. No additional questions or concerns. - Hgb 11.4 gm/dL/plt 149 today - T&S: O+, negative - Plan: Proceed towards delivery. OB Exam Physical Exam Vital signs: Temp Pulse Resp BP Pulse Ox 98.5 F 76 16 135/59 L 98 06/06/25 06:12 06/06/25 06:11 06/06/25 06:12 06/06/25 06:11 06/06/25 06:12 Narrative: Physical exam: General: No acute distress Psych: Alert and oriented x3, full affect HEENT: Normocephalic, atraumatic Lungs: Unlabored breathing Neuro: No focal deficit. Mentating appropriately Abdomen: Gravid. soft, no tenderness, rebound, or guarding. Breech Pelvic exam: Deferred
[2025-06-06 08:16] LABS: Hematocrit 33.6 % (33.0-51.0); Hemoglobin* 11.4 gm/dL (12.0-16.0); Immature Granulocytes Abs Auto 0.02 K/uL (0.00-0.30); Immature Granulocytes Pct Auto 0.2 %; Lymphocytes Absolute Auto 1.50 K/uL (0.90-2.90); Mean Corpuscular HGB Conc 34 gm/dL (32-36); Mean Corpuscular Hemoglobin 32 pg (26-34); Mean Corpuscular Volume 94 fL (80-100); RDW Coefficient of Variation % 13.1 % (11.5-15.5); Red Blood Count 3.58 m/uL (4.00-5.20); White Blood Count* 10.76 K/uL (4.50-11.00)
[2025-06-06 08:19] LABS: Slide Review Reflex No
--- NOTE | 2025-06-06 08:49 | P.NB_ITS ---
Nerve Block Nerve Block Time Seen by Provider: 08:45 Date Seen: 06/06/25 Type of block requested by surgeon for post-operative analgesia: TAP Side: bilateral Time out performed: Yes Verification of patient name: Yes Verification of date of : Yes Site marking: site marked Name of person performing procedure: Ajke Continuous monitoring Was continuous monitoring of O2 sat, B/P, quality assurance monitor, recorded every 15 minutes?: Yes Procedure Checklist: sterile prep, needles and gloves Ultrasound guided. Images saved: Yes Medications given in 5ml increments after negative aspiration: Marcaine %: 0.25 mL: 30 Needle gauge: 20 and Exparel mL: 10 Patient tolerated procedure well: Yes Additional comments: Needle noted between internal oblique and transversus abdominus. Local spread visualized Block Charges Block Charge (with Pro Fee): TAP Bilateral Use of Ultrasound Machine for Block: Yes- US Guidance/pain block
--- NOTE | 2025-06-06 08:49 | P.ANES_ITS ---
Anesthesia Charges Start Date/Time Anesthesia Start Date: 06/06/25 Anesthesia Start Time: 07:20 Stop Date/Time Anesthesia Stop Date: 06/06/25 Anesthesia Stop Time: 08:50 Coding CPT Codes CPT Codes: ANESTH CS DELIVERY - 41029 ([id number]) P2 - PATIENT W/MILD SYST DISEASE, QK - ACOUSTICS TEACHER 2-4 CNCRNT ANES PROC, QX - ART THERAPIST SVC W/ MD MED DIRECTION
--- NOTE | 2025-06-06 08:49 | W.ANESCHARGE ---
Anesthesia Charges Start Date/Time Anesthesia Start Date: 06/06/25 Anesthesia Start Time: 07:20 Stop Date/Time Anesthesia Stop Date: 06/06/25 Anesthesia Stop Time: 08:50 Coding CPT Codes CPT Codes: ANESTH CS DELIVERY - 78920 ([id number]) P2 - PATIENT W/MILD SYST DISEASE, QK - CEO NA 2-4 CNCRNT ANES PROC, QX - RISK ADVISOR SVC W/ MD MED DIRECTION
--- NOTE | 2025-06-06 08:55 | P.ANES_ITS ---
Anesthesia Charges Start Date/Time Anesthesia Start Date: 06/06/25 Anesthesia Start Time: 07:20 Stop Date/Time Anesthesia Stop Date: 06/06/25 Anesthesia Stop Time: 08:50 Coding CPT Codes CPT Codes: ANESTH CS DELIVERY - 92723 ([id number]) P2 - PATIENT W/MILD SYST DISEASE, QK - WEB SITE PROJECT MANAGER 2-4 CNCRNT ANES PROC, QX - VIOLIN TEACHER SVC W/ MD MED DIRECTION
--- NOTE | 2025-06-06 08:55 | W.ANESCHARGE ---
Anesthesia Charges Start Date/Time Anesthesia Start Date: 06/06/25 Anesthesia Start Time: 07:20 Stop Date/Time Anesthesia Stop Date: 06/06/25 Anesthesia Stop Time: 08:50 Coding CPT Codes CPT Codes: ANESTH CS DELIVERY - 64572 ([id number]) P2 - PATIENT W/MILD SYST DISEASE, QK - PUBLICATIONS PRODUCTION SUPERVISOR 2-4 CNCRNT ANES PROC, QX - VENTURE CAPITAL ANALYST SVC W/ MD MED DIRECTION
--- NOTE | 2025-06-06 09:15 | PM.OBPRCCS ---
Procedure Time Seen by Provider: 08:00 Date of procedure: 06/06/25 Will [facility] bill your pro fee for this procedure?: Yes Procedure Name: DELIVERY BY SECTION Date of Service: 06/06/25 Delivery time: 0754 Summary: Admitted for scheduled delivery at 39.3 weeks, repeat Lower uterine transverse section, Pfannenstiel, Closed with sutures, QBL 350 cc, No complications, Findings: Minimal filmy intraabdominal adhesion. Normal uterus, bilateral ovaries and tubes 8/9 weight 7lb 1oz Baby girl: Miroslava Primary Indication: 1. History of delivery x1 2. Footling breech at term Postoperative findings: Same Procedures: Repeat Lower uterine transverse section Specimens Removed: Placenta Surgeon: Ely Santiago MD Anesthesia: Spinal and TAP block Report: Prophylactic antibiotic, 2 g of Ancef was given before patient was taken to OR. After arrival to the operating room patient was placed in the supine position with left lateral tilt after administration of spinal anesthesia. She was prepped and draped in the usual sterile manner. Laparotomy A pfannenstiel incision was made through the anterior abdominal wall with #10 scalpel approximately 2 cm above the pubic symphysis. The incision was extended sharply with the #10 scalpel through the subcutaneous tissue to the level of fascia. The fascia was entered sharply with a #10 scalpel (Pfannenstiel) in the midline and extended in semi-elliptical fashion with Darling scissor. The underlying muscles were dissected off the overlying fascia by grasping the superior aspect of fascia with two shaunna clamps and blunt dissection was used along the midline. The fascia was further from rectus muscle with Darling scissor and/or cautery. In similar fashion, the lower aspect of fascia was also grasped with two Shaunna clamps and both blunt and sharp dissection was used to separate fascia from rectus muscle. The rectus muscles were in the midline bluntly with Ximena's. The peritoneum was then entered sharply with Ximena's and Metzenbaum. The peritoneal incision was then extended superiorly and inferiorly under direct visualization with care being taken to avoid bladder and bowel using electrocautery. Minimal filmy adhesions noted. The peritoneal incision was enlarged sharply with electrocautery and by lateral traction from the surgeon's and instructional support assistant's hand. Sumit retractor was inserted into the abdomen. Delivery A bladder flap was developed by grasping with Nigerien forceps and enter with Metzenbaun scissor. Then sharp and blunt dissection with Metzenbaum scissor and fingers were performed. A low transverse hysterotomy was made then with #10 scalpel and extended laterally and cephalad with fingers in a low transverse fashion with Manu Jimenez technique with care being taken to avoid injury to the fetus. The amniotic cavity (membrane) was then entered with spontaneous rupture of membrane, and the amniotic fluid was noted to be clear. feet were palpated and delivered gradually through the hysterotomy fundal pressure was continue until both legs were extended using the Pinard maneuver. With gentle pressure the legs and body gradually delivered once the scapula could be seen that the baby was gently rotated and both arms were delivered using the loveset maneuver. Maintaining head flexion, head was delivered without difficulty using the Rdublrup-[id number]-[id number] maneuver. With delivery of the baby, no extension was noted. Placenta was delivered spontaneously with steady traction on cord and manual separation of placenta from uterine wall. Closure Uterine cavity was cleaned after placental delivery with lap sponge x 2. The hysterotomy was closed in two layers with stitches using 0 vicryl with continuous locking stitches and 0 monocryl in a continuous non locking manner. Two rwptgl-yv-azceyt placed at superior mid hysterotomy due to hematoma expansion. Hemostasis established after qughap-yl-zpbtec placed. Hemostasis was achieved as needed with electrocautery. The ovaries/tubes/uterine surface were evaluated. They were found to be normal. Sumit retractor removed and hemostasis was confirmed again. Fascia was closed with running stitches using 0 PDS. Subcutaneous layer was irrigated. Hemostasis was checked for and found to be adequate. The subcutaneous layer was closed with running 2-0 chromic sutures. The skin was closed with 4-0 monocryl subcuticular sutures. The incision was cleaned and covered with a compression bandage and the procedure considered terminate at this time. Intraoperative Complications: None QBL: 350 cc Uterotonics/hemostatic agents: 30u of Pitocin Disposition: The patient tolerated the procedure well. She was recovered in Obstetric PACU for close monitoring in stable condition, with a contracted uterus and normal transvaginal bleeding. The was sent to mother?s bedside/PACU. The placenta was not sent to pathology. Debrief with OR team performed and specimen reviewed at the conclusion of the procedure.
[2025-06-06] MEDS: ACETAMINOPHEN 500 MG TABLET 1000 MG PO (12:33)
[2025-06-07] VITALS (11 sets, daily range): BP systolic 98–108; BP diastolic 56–68; PULSE 58–77; RESP 16; TEMP 36.8–37.1; O2SAT 97–99
[2025-06-07 06:40] LABS: Hemoglobin* 10.8 gm/dL (12.0-16.0)
[2025-06-07] MEDS: ACETAMINOPHEN 500 MG TABLET 1000 MG PO ×2 (07:04→17:14)
--- NOTE | 2025-06-07 07:41 | PM.OBPNVD1 ---
OB - PN:Subj Subjective Date Seen: 06/07/25 Narrative: Marisela is a 29 y.o. who was admitted to [facility] & [facility] for scheduled repeat .? She had an uncomplicated repeat .? ? The patient feels well.? The pain is well controlled with current medications.? She has no new complaints.? She is breast feeding and reports things are going well.? the patient has done well.? Vitals have been stable.? She has remained afebrile.? Has a good appetite, is tolerating a general diet.? She is voiding without difficulty.? She is passing gas and has not had a bowel movement.? She is ambulating and denies any dizziness.? Has Small amount of rubra lochia.? OB - PN: Obj Exam Physical Exam: Vital signs: Temp Pulse Resp BP Pulse Ox O2 Del Method 98.2 F 58 L 16 98/56 L 98 Room Air 06/07/25 02:30 06/07/25 02:30 06/07/25 07:00 06/07/25 02:30 06/07/25 02:30 06/07/25 02:30 Narrative: GENERAL APPEARANCE:? normal affect, alert, no distress MOOD:? appropriate CHEST:? clear to auscultation HEART:? regular rate and rhythm ABDOMEN:? soft, non-tender the uterine fundus is firm At Umbilicus, Midline and is appropriate for the stage of recovery. PERINEUM:? intact, normal amount of rubra lochia EXTREMITIES:? normal and trace edema Incision: Healing well, no surrounding erythema, abnormal induration or discharge OB - PN: Obj Data Labs Labs: Laboratory Results - last 24 hr 06/06/25 06/07/25 06:40 06:00 WBC 10.76 RBC 3.58 L Hgb 11.4 L 10.8 L Hct 33.6 MCV 94 MCH 32 MCHC 34 RDW Coeff of Karen 13.1 Plt Count 149 Neut % (Auto) 79.2 H Lymph % (Auto) 13.9 L Hickman % (Auto) 5.9 Eos % (Auto) 0.5 Baso % (Auto) 0.3 Neut # (Auto) 8.50 H Lymph # (Auto) 1.50 Hickman # (Auto) 0.60 Eos # (Auto) 0.05 Baso # (Auto) 0.03 Abs Immat Gran (auto) 0.02 Imm/Tot Granulo (auto) 0.2 Blood Type O Positive Antibody Screen NEGATIVE OB - PN: A/P Delivery Assessment and Plan (1) Breech presentation of fetus: Status: Resolved (2) care following delivery: Status: Acute (3) Lactating mother: Status: Acute Plan day: 1 Plan: routine care Comments: Assessment/Plan?G 2 P 2 status post uncomplicated repeat .? ?? 1.? Continue route PP cares? 2.? .? May see if desired? 3.? Anticipate discharge home tomorrow or the following day per pt preference? ?
[2025-06-07] MEDS: DOCUSATE SODIUM 100 MG CAPSULE PO (08:32)
[2025-06-07] MEDS: IBUPROFEN 600 MG TABLET PO (20:45)
[2025-06-08] MEDS: ACETAMINOPHEN 500 MG TABLET 1000 MG PO ×2 (00:54→09:02)
[2025-06-08 00:55] VITALS: BP 113/74; PULSE 74; RESP 16; TEMP 36.8; O2SAT 97
[2025-06-08] MEDS: IBUPROFEN 600 MG TABLET PO (03:52)
--- NOTE | 2025-06-08 08:38 | PM.OBDSVD1 ---
DS: Providers Provider Date Seen: 06/08/25 Date of admission: 06/06/25 05:47 Primary care physician: Tameka Garcia DO Admitting Clinician: Ely Santiago MD Attending Physician on discharge: Ely Santiago MD Date of Discharge: 06/08/25 DS: Diagnosis Discharge Diagnosis (1) Lactating mother: Status: Acute (2) care following delivery: Status: Acute (3) Previous delivery affecting : Status: Acute Exam Narrative: Exam Narrative: GENERAL APPEARANCE:? normal affect, alert, no distress? MOOD:? appropriate? CHEST:? clear to auscultation and percussion? HEART:? regular rate and rhythm? ABDOMEN:? soft, non-tender the uterine fundus is U/2 and is appropriate for the stage of recovery. Incision well approximated without drainage, erythema, or edema.? EXTREMITIES:? normal and no edema? Const: Vital Signs, click to edit/add: Vital Signs - 24 hr 06/07/25 16:37 06/08/25 00:55 Temperature 98.8 F 98.2 F Pulse Rate [Pulse Oximeter] 74 74 Respiratory Rate 16 16 Blood Pressure [Le ft Arm] 100/60 113/74 Pulse Oximetry 97 97 Oxygen Delivery Me thod Room Air Room Air Documenting provider has reviewed patient's vital signs: yes OB - DS: Summary Hospital Course Hospital Course: Marisela is a 29 y.o. G 2 P 2 who was admitted to L & D for repeat section. ?She had a repeat section that was uncomplicated. The patient feels well. ?The pain is well controlled with current medications. ?She has no new complaints. ?She is breast feeding and reports things are going well. the patient has done well.? Vitals have been stable.? She has remained afebrile.? Has a good appetite, is tolerating a general diet. ?She is voiding without difficulty.? She is passing gas and has not had a bowel movement.? She is ambulating and denies any dizziness.? Has small amount of rubra lochia. She is uncertain what she is planning for prevention but is considering min pill or possibly partner vasectomy. We did discuss the Slynd POP as she states she is sometimes not a timely medication taker. Peripartum Data Procedures: Procedures Operation Date: 06/06/25 07:15 Actual Procedure Side Surgeon p Repeat Section Ely Santiago MD complications: none Gender: Female Infant Discharge Plan: Home Status at Discharge Functional status at discharge: independent ambulation Overall status at discharge: patient is progressing back to baseline Time Spent with Patient Time attestation: Total time spent providing and/or coordinating discharge services: Discharge Plan Discharge Disposition: Home, Self-Care Date of Admission: 06/06/25 05:47 Attending Provider on Discharge: Khadijah Fuller Primary Care Provider: Tameka Garcia Condition: Stable Anticipated Discharge Date/Time: 06/08/25 10:00 Discharge Medications: New docusate sodium 100 mg Capsule 100 mg PO DAILY Qty: 100 0RF Rx Instructions: Take 1-2 tablets daily as needed for constipation. ibuprofen 600 mg Tablet 600 mg PO Q6H PRN (Reason: Pain) Qty: 90 0RF oxycodone 5 mg Tablet 5 - 10 mg PO Q4H PRN (Reason: Pain) Qty: 7 0RF Continued ferrous sulfate 325 mg (65 mg iron) tablet 325 mg PO QDAY DHA 200 mg capsule 200 mg PO QDAY escitalopram oxalate 10 mg tablet 10 mg PO DAILY Patient Comments: TAKE 1 TABLET (10 MG) BY MOUTH ONCE DAILY. Discharge Orders: Discharge Order (Routine); Ordered 06/08/25 Ordered By: Khadijah Fuller Patient Education: OB /Breast Feeding Additional Instructions: Discharge instructions were reviewed with the patient including signs and symptoms of infection and home going medications Lifting Restrictions: 20 pounds for 6 weeks Discharge instructions were reviewed with the patient including signs and symptoms of infection and home going medications Lifting Restrictions: 20 pounds for 6 weeks Do not submerge incision under water X 2 weeks? Nothing vaginally for 6 weeks: no tampons or intercourse Do not drive while taking narcotic pain medication(s) Off Work or School for 8 weeks 2-week post-operative visit with OB: incision check, with provider who performed section is preferred 6-week visit for an annual exam with your Family Medicine Provider at [facility]. consultation services are available to all mothers and babies for the first year after delivery.? To make an appointment, please call [phone]. Activity Level: Activity as Tolerated Discharge Diet: Regular Follow Up Appointments: [facility] [Provider Group] Tameka Garcia, [Primary Care Provider, Family Practice] Forms: MyHealth Info Instructions
[2025-06-08] MEDS: DOCUSATE SODIUM 100 MG CAPSULE PO (09:03)
[2025-06-08 09:15] VITALS: BP 124/77; PULSE 92; RESP 16; TEMP 37.1; O2SAT 98
== END 2025-06-08 11:06 | disposition home or self-care (01) | DRG 540 ==
PROVIDERS: Admitting Provider Obstetrics & Gynecology; PCP Family Medicine; Referring Provider Obstetrics & Gynecology; Visit Provider Obstetrics & Gynecology
PROC: 10D00Z1 Extraction of Products of Conception, Low, Open Approach (ICD-10-PCS; CPT 59514; principal; 2025-06-06 07:15)
DX: O34.211 Maternal care for low transverse scar from previous cesarean delivery (principal); O32.1XX0 Maternal care for breech presentation, not applicable or unspecified; G89.18 Other acute postprocedural pain; Z3A.39 39 weeks gestation of pregnancy; Z37.0 Single live birth
CPT/HCPCS: 01961; 36415; 64488; 76942; 85018; 85025; 86592; 86850; 86900; 86901; A4314; A9270; J0665; J0666; J0690; J1100; J1885; J2274; J2371; J2405; J2590; J7120